=== PATIENT | male | born 1970 | race Caucasian/White ===

== ENCOUNTER 2016-08-16 08:07 | Outpatient (CLI) | payer OTHER | END 2016-08-16 08:08 | disposition home or self-care (01) | LOC: NC 08:07 | PROVIDERS: ATTEND Family Medicine | DX: E11.9 Type 2 diabetes mellitus without complications (principal); Z71.3 Dietary counseling and surveillance; Z68.34 Body mass index [BMI] 34.0-34.9, adult ==

== ENCOUNTER 2016-08-28 17:30 | Outpatient (CLI) | payer OTHER | END 2016-08-28 17:31 | disposition home or self-care (01) | LOC: NC 17:30 | PROVIDERS: ATTEND Family Medicine | DX: E11.9 Type 2 diabetes mellitus without complications (principal); Z71.3 Dietary counseling and surveillance; Z68.34 Body mass index [BMI] 34.0-34.9, adult; I10 Essential (primary) hypertension ==